=== PATIENT | female | born 1980 | race Two or more races ===

== ENCOUNTER 2020-01-27 12:00 | Observation (INO) | payer MEDICAID, OTHER | END 2020-01-27 14:15 | disposition home or self-care (01) | DRG 566 | LOC: LDRP 12:00 | PROVIDERS: ADMIT Obstetrics & Gynecology; ATTEND Obstetrics & Gynecology | DX: O24.419 Gestational diabetes mellitus in pregnancy, unspecified control (principal); Z3A.30 30 weeks gestation of pregnancy | CPT/HCPCS: 76818; 81002; 82948; 82962; G0378 ==

== ENCOUNTER 2020-02-10 10:04 | Observation (INO) | payer MEDICAID | END 2020-02-10 11:00 | disposition home or self-care (01) | DRG 566 | LOC: LDRP 10:04 | PROVIDERS: ADMIT Obstetrics & Gynecology; ATTEND Obstetrics & Gynecology | DX: O24.415 Gestational diabetes mellitus in pregnancy, controlled by oral hypoglycemic drugs (principal); Z3A.30 30 weeks gestation of pregnancy | CPT/HCPCS: 76818; 82962; G0378; 59025; 81002; 82948 ==

== ENCOUNTER 2020-02-13 12:23 | Observation (INO) | payer MEDICAID ==
[2020-02-13] MEDS ORDERED: PREN-129 PO (13:18)
[2020-02-13] MEDS ORDERED: METF-370 PO (13:18)
[2020-02-13] MEDS ORDERED: GLYB1.257 PO (13:18)
== END 2020-02-13 13:40 | disposition home or self-care (01) | DRG 566 ==
LOC: LDRP 12:23
PROVIDERS: ADMIT Obstetrics & Gynecology; ATTEND Obstetrics & Gynecology
DX: O24.419 Gestational diabetes mellitus in pregnancy, unspecified control (principal); Z3A.30 30 weeks gestation of pregnancy
CPT/HCPCS: 59025; 76818; 81002; 82962; G0378

== ENCOUNTER 2020-02-17 16:20 | Observation (INO) | payer MEDICAID ==
[~2020-02-17 16:20] MED LIST: GLYB1.257 PO; METF-370 PO; PREN-129 OR
== END 2020-02-17 17:35 | disposition home or self-care (01) | DRG 566 ==
LOC: LDRP 16:20
PROVIDERS: ADMIT Specialist; ATTEND Specialist
DX: O24.414 Gestational diabetes mellitus in pregnancy, insulin controlled (principal); O62.9 Abnormality of forces of labor, unspecified; Z3A.31 31 weeks gestation of pregnancy
CPT/HCPCS: 76818; 82962; G0378; 59025; 81002; 82948

== ENCOUNTER 2020-02-25 12:08 | Observation (INO) | payer MEDICAID | END 2020-02-25 14:40 | disposition home or self-care (01) | DRG 566 | LOC: LDRP 12:08 | PROVIDERS: ADMIT Specialist; ATTEND Specialist | DX: O24.419 Gestational diabetes mellitus in pregnancy, unspecified control (principal); Z3A.32 32 weeks gestation of pregnancy | CPT/HCPCS: 76818; 82962; G0378; 59025; 81002; 82948 ==

== ENCOUNTER 2020-02-28 09:55 | Observation (INO) | payer MEDICAID | END 2020-02-28 11:20 | disposition home or self-care (01) | DRG 566 | LOC: LDRP 09:55 | PROVIDERS: ADMIT Obstetrics & Gynecology; ATTEND Obstetrics & Gynecology | DX: O24.419 Gestational diabetes mellitus in pregnancy, unspecified control (principal); Z3A.32 32 weeks gestation of pregnancy | CPT/HCPCS: 59025; 76818; 81002; 82948; 82962; G0378 ==

== ENCOUNTER 2020-03-02 10:56 | Observation (INO) | payer MEDICAID | END 2020-03-02 12:17 | disposition home or self-care (01) | DRG 566 | LOC: LDRP 10:56 | PROVIDERS: ADMIT Obstetrics & Gynecology; ATTEND Obstetrics & Gynecology | DX: O24.415 Gestational diabetes mellitus in pregnancy, controlled by oral hypoglycemic drugs (principal); Z3A.33 33 weeks gestation of pregnancy | CPT/HCPCS: 59025; 76818; 81002; 82948; 82962; G0378 ==

== ENCOUNTER 2020-03-05 11:54 | Observation (INO) | payer MEDICAID ==
[2020-03-05] MEDS ORDERED: [UNRECOGNIZED DRUG - CODE] PO (13:21)
== END 2020-03-05 13:40 | disposition home or self-care (01) | DRG 566 ==
LOC: LDRP 11:54
PROVIDERS: ADMIT Obstetrics & Gynecology; ATTEND Obstetrics & Gynecology
DX: O24.415 Gestational diabetes mellitus in pregnancy, controlled by oral hypoglycemic drugs (principal); Z3A.33 33 weeks gestation of pregnancy
CPT/HCPCS: 59025; 76818; 81002; 82948; G0378

== ENCOUNTER 2020-03-09 11:41 | Observation (INO) | payer MEDICAID ==
[~2020-03-09 11:41] MED LIST changes: -GLYB1.257 PO; +[UNRECOGNIZED DRUG - CODE] PO
== END 2020-03-09 12:45 | disposition home or self-care (01) | DRG 566 ==
LOC: LDRP 11:41
PROVIDERS: ADMIT Obstetrics & Gynecology; ATTEND Obstetrics & Gynecology
DX: O24.419 Gestational diabetes mellitus in pregnancy, unspecified control (principal); O09.523 Supervision of elderly multigravida, third trimester; O62.9 Abnormality of forces of labor, unspecified; Z3A.34 34 weeks gestation of pregnancy
CPT/HCPCS: 59025; 76818; 81002; 82962; G0378

== ENCOUNTER 2020-03-12 11:33 | Observation (INO) | payer MEDICAID ==
[~2020-03-12] VITALS: Ht 147.3 cm; Wt 71.2 kg
[2020-03-12] MEDS: TERBUTALINE SULFATE 1 MG/ML 1ML VIAL SC SCH ×2 (14:19→14:37)
== END 2020-03-12 15:15 | disposition home or self-care (01) | DRG 566 ==
LOC: LDRP 11:33
PROVIDERS: ADMIT Specialist; ATTEND Specialist
DX: O24.414 Gestational diabetes mellitus in pregnancy, insulin controlled (principal); O99.89 Other specified diseases and conditions complicating pregnancy, childbirth and the puerperium; M54.9 Dorsalgia, unspecified; Z3A.34 34 weeks gestation of pregnancy; Z98.891 History of uterine scar from previous surgery
CPT/HCPCS: 59025; 76818; 81002; 82948; 82962; 96372; G0378; J3105

== ENCOUNTER 2020-03-20 12:08 | Observation (INO) | payer MEDICAID | END 2020-03-20 13:55 | disposition home or self-care (01) | DRG 566 | LOC: LDRP 12:08 | PROVIDERS: ADMIT Specialist; ATTEND Specialist | DX: O24.414 Gestational diabetes mellitus in pregnancy, insulin controlled (principal); O09.523 Supervision of elderly multigravida, third trimester; Z3A.35 35 weeks gestation of pregnancy | CPT/HCPCS: 59025; 76818; 81002; 82948; 82962; G0378 ==

== ENCOUNTER 2020-03-23 10:59 | Observation (INO) | payer MEDICAID ==
[~2020-03-23 10:59] MED LIST changes: -PREN-129 OR; +PREN-129 PO
== END 2020-03-23 14:30 | disposition home or self-care (01) | DRG 566 ==
LOC: LDRP 10:59
PROVIDERS: ADMIT Obstetrics & Gynecology; ATTEND Obstetrics & Gynecology
DX: O24.414 Gestational diabetes mellitus in pregnancy, insulin controlled (principal); O26.853 Spotting complicating pregnancy, third trimester; Z3A.36 36 weeks gestation of pregnancy
CPT/HCPCS: 59025; 76818; 81002; 82948; 82962; G0378

== ENCOUNTER 2020-03-27 12:25 | Observation (INO) | payer MEDICAID | END 2020-03-27 14:15 | disposition home or self-care (01) | DRG 566 | LOC: LDRP 12:25 | PROVIDERS: ADMIT Specialist; ATTEND Specialist | DX: O24.419 Gestational diabetes mellitus in pregnancy, unspecified control (principal); Z3A.36 36 weeks gestation of pregnancy | CPT/HCPCS: 59025; 76818; 81002; 82948; 82962; G0378 ==

== ENCOUNTER 2020-03-30 11:02 | Observation (INO) | payer MEDICAID ==
[~2020-03-30 11:02] MED LIST changes: +PREN-129 OR; -PREN-129 PO
== END 2020-03-30 11:50 | disposition home or self-care (01) | DRG 566 ==
LOC: LDRP 11:02
PROVIDERS: ADMIT Obstetrics & Gynecology; ATTEND Obstetrics & Gynecology
DX: O24.419 Gestational diabetes mellitus in pregnancy, unspecified control (principal); Z3A.37 37 weeks gestation of pregnancy
CPT/HCPCS: 59025; 76818; 81002; 82948; 82962; G0378

== ENCOUNTER 2020-04-03 12:15 | Observation (INO) | payer MEDICAID ==
[~2020-04-03 12:15] MED LIST changes: -PREN-129 OR; +PREN-129 PO
== END 2020-04-03 13:35 | disposition home or self-care (01) | DRG 566 ==
LOC: LDRP 12:15
PROVIDERS: ADMIT Obstetrics & Gynecology; ATTEND Obstetrics & Gynecology
DX: O24.415 Gestational diabetes mellitus in pregnancy, controlled by oral hypoglycemic drugs (principal); Z79.84 Long term (current) use of oral hypoglycemic drugs; Z3A.37 37 weeks gestation of pregnancy
CPT/HCPCS: 59025; 76818; 81002; 82948; 82962; G0378

== ENCOUNTER 2020-04-05 08:16 | Inpatient (IN) | payer MEDICAID ==
[~2020-04-05] VITALS: Ht 147.3 cm; Wt 71.7 kg
[2020-04-05] MEDS ORDERED: NIFEdipine 10 MG CAP PO ONE ×2 (09:00→13:30)
[2020-04-05] MEDS ORDERED: LACTATED RINGER'S 1,000 ML IV ONE (09:01)
[2020-04-05] MEDS ORDERED: NIFEdipine 10 MG CAP ONE ×2 (09:15→09:17)
[2020-04-05] MEDS: LACTATED RINGER'S 1,000 ML IV SCH (11:42)
[2020-04-05 16:38] LABS: Urine Bacteria FEW /hpf (None Seen); Urine Blood Negative /uL (Negative); Urine Specific Gravity 1.007 (1.001-1.035); Urine WBC 3 /hpf (0 - 5)
[2020-04-05 16:41] LABS: Basophils # (auto) 0 10 ^3/uL (0-0.2); Basophils % (auto) 0.2 % (0.0-2.0); Eosinophils # (auto) 0 10 ^3/uL (0-0.8); Eosinophils % (auto) 0.5 % (0.0-7.0); Hematocrit 37.5 % (36.0-46.0); Hemoglobin 12.6 g/dL (12.2-16.2); Lymphocytes # (auto) 1.7 10 ^3/uL (0.4-5.4); Lymphocytes % (auto) 21.7 % (10.0-50.0); Mean Corpuscular Hemoglobin 30.9 pg (28.0-32.0); Mean Corpuscular Hgb Conc. 33.6 g/dL (32.0-36.0); Mean Corpuscular Volume 91.8 fL (80.0-100.0); Monocytes # (auto) 0.7 10 ^3/uL (0-1.3); Monocytes % (auto) 8.4 % (0.0-12.0); Neutrophils # (auto) 5.5 10 ^3/uL (1.6-8.6); Neutrophils % (auto) 69.2 % (37.0-80.0); Nucleated Red Blood Cells % 0.1 %; Platelet Count (auto) 123 10^3/uL (140-450); Red Blood Cells 4.08 10^6/uL (4.0-5.20); Red Cell Distribution Width 13.7 % (11.8-14.3); White Blood Cell 7.9 10^3/uL (4.4-10.8)
[2020-04-05 16:57] LABS: Albumin 2.5 g/dL (3.4-5.0); Calcium 8.7 mg/dL (8.5-10.1); Potassium 3.5 mmol/L (3.5-5.1)
[2020-04-05 17:00] LABS: INR 0.91 (0.9-1.15); Partial Thromboplastin Time 27.9 sec (23.64-32.05)
[2020-04-05 17:01] LABS: BUN/Creatinine Ratio 16.7; Bilirubin, Total 0.2 mg/dL (0.2-1.0); Total Protein 6.8 g/dL (6.4-8.2)
[2020-04-05] MEDS: NIFEdipine 10 MG CAP PO SCH (20:59)
[2020-04-05] MEDS ORDERED: glyBURIDE 5 MG TAB PO ONE ×2 (21:00→22:00)
[2020-04-06] VITALS (8 sets, daily range): BP systolic 98–109; BP diastolic 58–71
[2020-04-06] MEDS: NIFEdipine 10 MG CAP PO SCH ×2 (01:02→04:51)
[2020-04-06] MEDS: LACTATED RINGER'S 1,000 ML IV SCH ×4 (01:03→20:22)
[2020-04-06] MEDS ORDERED: TETRACAINE 1% INJ 2 ML VIAL IJ ONE (07:02)
[2020-04-06] MEDS ORDERED: MORPHINE SULF(PF) 0.5MG/ML 10ML VIAL ONE (07:36)
[2020-04-06] MEDS ORDERED: fentaNYL CITRATE 100 MCG/2 ML VL ONE (07:36)
[2020-04-06] MEDS ORDERED: MIDAZOLAM HCL 1MG/1ML-2 ML VIAL ONE (07:36)
[2020-04-06] MEDS ORDERED: ceFAZolin 1GM VL ONE (08:26)
[2020-04-06] MEDS ORDERED: oxyTOCIN 10 UNIT/ML 10ML VIAL ONE (08:29)
[2020-04-06] MEDS ORDERED: ePHEDrine SULFATE 50 MG/ML AMP ONE (08:37)
[2020-04-06] MEDS ORDERED: ONDANSETRON HCL 4 MG/2 ML VIAL IV PRN ×4 (09:15→13:45)
[2020-04-06] MEDS ORDERED: HYDROmorphone HCL 2 MG/ML VL IV PRN ×3 (09:15→09:45)
[2020-04-06] MEDS ORDERED: ACETAMINOPHEN IV 1000 MG/100ML (10MG/ML) IV ONE (09:30)
[2020-04-06] MEDS ORDERED: diphenhdrAMINE HCL 50 MG/1 ML VL IV PRN (09:45)
[2020-04-06] MEDS ORDERED: NALBUPHINE HCL 10 MG/1ml INJECTION SUBCUT ONE (09:45)
[2020-04-06] MEDS ORDERED: LABETALOL HCL 5 MG/ML 4ML SYRINGE IV PRN (09:45)
[2020-04-06] MEDS ORDERED: DexAMETHasone SOD PHOS 10MG/1ML VIAL INJ IV PRN (09:45)
[2020-04-06] MEDS ORDERED: MIDAZOLAM HCL 1MG/1ML-2 ML VIAL IV PRN (09:45)
[2020-04-06] MEDS ORDERED: ePHEDrine SULFATE 50 MG/ML AMP IV PRN (09:45)
[2020-04-06] MEDS ORDERED: ACCU-CHEK COMFORT CURVE STRIP VI ONE (09:45)
[2020-04-06] MEDS ORDERED: NALOXONE HCL 0.4 MG/ML VIAL IV PRN (09:45)
--- NOTE | 2020-04-06 10:20 | NUR ---
Post Op for LDRP: REPORT RECEIVED FROM JOINT CLEANING MACHINE OPERATOR SHERLY Received patient from PACU via bed B to room 108 . Patient A/A/Ox4, abdominal binder and bilateral SCD's are in place, IV fluids placed on pump and infusing per order, incisional site dressing clean/dry/intact and Beverly Catheter to gravity draining clear yellow urine. IS AT BEDSIDE.
--- NOTE | 2020-04-06 11:00 | NUR ---
REPORT GIVEN TO ALYSSA. MACKENZIE ACEVES
[2020-04-06] MEDS: KETOROLAC TROMETH 30 MG/ML 1ML VIAL IV SCH ×3 (11:25→23:58)
[2020-04-06] MEDS ORDERED: KETOROLAC TROMETH 30 MG/ML 1ML VIAL IV SCH (12:00)
--- NOTE | 2020-04-06 13:00 | NUR ---
[facility] PROVIDED Pad changed pt cleaned, fundus firm 1 below u scant bleeding. Will continue to monitor.
[2020-04-06] MEDS: ceFAZolin 1GM/50ML 50 ML IV SCH ×2 (15:30→23:58)
--- NOTE | 2020-04-06 16:00 | NUR ---
Teaching: Reviewed information in [facility] booklet with patient. Discussed benefits of and risks associated with not . Discussed different positions, proper latch, feeding cues, and baby-led . Provided information of medication side effects related to . All questions and concerns addressed at this time. Patient verbalized understanding of information.
--- NOTE | 2020-04-06 22:30 | NUR ---
Ambulation: Patient up with standby assistance by RN. Patient ambulated to chair with steady gait. Clean gown provided and bed linen changed. Patient ambulated back to bed with steady gait and no distress noted.
[2020-04-07] MEDS ORDERED: ACETAMINOPHEN IV 1000 MG/100ML (10MG/ML) IV PRN (01:15)
[2020-04-07] MEDS: LACTATED RINGER'S 1,000 ML IV SCH (01:51)
[2020-04-07 03:23] VITALS: BP 95/60
[2020-04-07 05:07] LABS: RPR Non Reactive (Non Reactive)
--- NOTE | 2020-04-07 05:13 | NUR ---
Beverly removed and dressing removed. Pt tolerated well. Pt aware to call for help when going to the bathroom.
[2020-04-07] MEDS: KETOROLAC TROMETH 30 MG/ML 1ML VIAL IV SCH (05:45)
[2020-04-07 06:50] VITALS: BP 102/67
[2020-04-07 07:18] LABS: Basophils # (auto) 0 10 ^3/uL (0-0.2); Basophils % (auto) 0.3 % (0.0-2.0); Eosinophils # (auto) 0 10 ^3/uL (0-0.8); Eosinophils % (auto) 0.2 % (0.0-7.0); Hemoglobin 10.7 g/dL (12.2-16.2); Lymphocytes # (auto) 0.8 10 ^3/uL (0.4-5.4); Lymphocytes % (auto) 9.8 % (10.0-50.0); Mean Corpuscular Hemoglobin 31.6 pg (28.0-32.0); Mean Corpuscular Hgb Conc. 34.4 g/dL (32.0-36.0); Monocytes # (auto) 0.7 10 ^3/uL (0-1.3); Monocytes % (auto) 8.1 % (0.0-12.0); Neutrophils # (auto) 6.9 10 ^3/uL (1.6-8.6); Neutrophils % (auto) 81.6 % (37.0-80.0); Platelet Count (auto) 102 10^3/uL (140-450); Red Blood Cells 3.37 10^6/uL (4.0-5.20); Red Cell Distribution Width 13.8 % (11.8-14.3); White Blood Cell 8.5 10^3/uL (4.4-10.8)
[2020-04-07] MEDS ORDERED: SIMETHICONE 80 MG CHEWABLE TABLET PO PRN (07:30)
[2020-04-07] MEDS ORDERED: HYDROcodone-ACET 5/325MG TAB PO PRN (07:30)
--- NOTE | 2020-04-07 07:44 | NUR ---
Ambulation: Patient OOB with standby assistance by RN. Patient ambulated to bathroom with steady gait. Patient able to void without difficulty. [facility] teaching provided with returned demonstration by patient. Clean gown provided and bed linen changed. Patient ambulated back to bed with steady gait and no distress noted.
[2020-04-07] MEDS: HYDROcodone-ACET 5/325MG TAB PO PRN ×2 (07:59→15:05)
[2020-04-07] MEDS: ceFAZolin 1GM/50ML 50 ML IV SCH (07:59)
[2020-04-07] MEDS: IBUPROFEN 800 MG TAB PO PRN ×2 (10:58→18:43)
[2020-04-07] MEDS: DOCUSATE SOD 100 MG CAP PO SCH ×2 (10:58→22:00)
[2020-04-07 11:06] VITALS: BP 123/72
[2020-04-07 15:00] VITALS: BP 105/53
[2020-04-07 18:48] VITALS: BP 123/68
[2020-04-07 23:15] VITALS: BP 108/68
[2020-04-08] MEDS: HYDROcodone-ACET 5/325MG TAB PO PRN ×3 (01:37→16:43)
--- NOTE | 2020-04-08 01:45 | NUR ---
Call placed to Jennifer Rendon CNM regarding temperatures. Orders received to give 500ml bolus LR IV and then 500ml LR at 150ml/hr.
[2020-04-08] MEDS ORDERED: LACTATED RINGER'S 1,000 ML IV ONE (01:48)
--- NOTE | 2020-04-08 01:50 | NUR ---
IV Insertion and Removal 20g IV to left AC not patent. DC'd with clean sterile technique, catheter fully intact. Pressure dressing applied to site. Patient tolerated well. IV access obtained, via clean sterile technique by inserting 20g gauge catheter at left hand after 1 attempt. IV secured properly. No trauma to site. Patient tolerated well.
[2020-04-08 03:15] VITALS: BP 108/80
[2020-04-08] MEDS: IBUPROFEN 800 MG TAB PO PRN ×2 (06:17→14:45)
[2020-04-08 06:37] VITALS: BP 112/78
--- NOTE | 2020-04-08 09:00 | NUR ---
ASSUMED CARE OF STABLE PT AFTER RECEIVING REPORT FROM RAMESH Boyer RN.
[2020-04-08] MEDS: DOCUSATE SOD 100 MG CAP PO SCH ×2 (09:48→22:29)
--- NOTE | 2020-04-08 10:00 | NUR ---
ROUNDS MADE, PT CONDITION STABLE, NO C/O PAIN AT THIS TIME, GOOD MOTHER INFANT BONDING NOTED.
[2020-04-08 11:00] VITALS: BP 101/64
--- NOTE | 2020-04-08 14:45 | NUR ---
PT MEDICATED WITH MOTRIN 800MG PO PER ORDERS FOR ABD CRAMPS RATING 3/10.
[2020-04-08 15:00] VITALS: BP 120/65
--- NOTE | 2020-04-08 15:45 | NUR ---
PT OOB TO SHOWER, SALINE LOCK COVERED AND TAPED, BATHROOM SET UP FOR PT.
--- NOTE | 2020-04-08 16:43 | NUR ---
PT MEDICATED WITH NORCO X2 5MG TABS PO PER ORDERS FOR INCISIONAL PAIN RATING 7/10.
[2020-04-08 19:30] VITALS: BP 116/56
[2020-04-08] MEDS ORDERED: BISACODYL 10 MG RECT SUPP PR ONE (20:00)
[2020-04-08 23:00] VITALS: BP 129/74
[2020-04-09] MEDS: IBUPROFEN 800 MG TAB PO PRN (00:14)
[2020-04-09 02:48] VITALS: BP 111/67
[2020-04-09] MEDS: HYDROcodone-ACET 5/325MG TAB PO PRN ×2 (03:18→08:15)
[2020-04-09] MEDS ORDERED: TETANUS-DIPTH-ACEL PERTUSSIS 0.5ML SYR Tdap IM ONE (04:25)
--- NOTE | 2020-04-09 06:45 | NUR ---
C/S Staple Removal DC NotE: D. Tough CNM removed debbie. Lower abdominal incision approximated, no drainage/redness/inflammation visualized at time of removal. Steri-strips applied. Education provided on incisional care. Patient verbalized understanding and willingness to comply to instructions/teaching provided.
[2020-04-09 06:51] VITALS: BP 109/85
[2020-04-09] MEDS ORDERED: MEASLES, MUMPS & RUBELLA VAC(MMRII) 0.5ML SC ONE (07:45)
--- NOTE | 2020-04-09 07:45 | NUR ---
IV removal IV DC'd with sterile technique, catheter fully intact. Pressure dressing applied to site. Patient tolerated procedure well.
--- NOTE | 2020-04-09 07:53 | NUR ---
Discharge: Discharge instructions given as ordered. Pt encouraged to follow up with DB2 DEVELOPER as instructed. All questions and concerns addressed. Patient verbalized understanding. Medication reconciliation completed and copy given to patient. All required/requested vaccines given and copies of vaccinations given to patient. Patient encouraged to prepare to depart unit.
--- NOTE | 2020-04-09 09:40 | NUR ---
Discharge: ID bands matched and ID verification form signed and witnessed. One ID band was removed and placed in chart. Infant taken to vehicle, accompanied by staff, mother of baby, and family member along with all personal belongings. secured in rear-facing car seat by parent and verified by staff. No distress or adverse changes in status since initial assessment was noted at time of departure.
--- NOTE | 2020-04-09 09:40 | NUR ---
Discharge: Patient taken to vehicle via wheelchair with all personal belongings, accompanied by staff and family member. No distress noted at time of departure, no adverse changes in status since initial assessment.
== END 2020-04-09 09:40 | disposition home or self-care (01) | DRG 540 ==
LOC: OBSVTOIN 08:16 → LDRP 08:16
PROVIDERS: ADMIT Specialist; ATTEND Specialist
PROC: 10D00Z1 Extraction of Products of Conception, Low, Open Approach (ICD-10-PCS; 2020-04-06)
PROC: 0UB70ZZ Excision of Bilateral Fallopian Tubes, Open Approach (ICD-10-PCS; principal; 2020-04-06 07:51)
PROC: 3E0234Z Introduction of Serum, Toxoid and Vaccine into Muscle, Percutaneous Approach (ICD-10-PCS; 2020-04-09)
PROC: 3E0134Z Introduction of Serum, Toxoid and Vaccine into Subcutaneous Tissue, Percutaneous Approach (ICD-10-PCS; 2020-04-09)
DX: O34.211 Maternal care for low transverse scar from previous cesarean delivery (principal); O24.429 Gestational diabetes mellitus in childbirth, unspecified control; O32.1XX0 Maternal care for breech presentation, not applicable or unspecified; Z30.2 Encounter for sterilization; Z37.0 Single live birth; Z3A.38 38 weeks gestation of pregnancy; Z23 Encounter for immunization; Z03.818 Encounter for observation for suspected exposure to other biological agents ruled out
CPT/HCPCS: 36415; 51702; 59025; 76818; 80053; 81001; 81002; 82948; 82962; 84112; 85025; 85610; 85730; 86592; 86850; 86900; 86901; 90715; 96360; 96361; 96372; G0378; J0131; J0690; J1885; J2250; J2405; J2590